=== PATIENT | female | born 1955 | race African-American/Black ===

== ENCOUNTER 2022-08-12 17:36 | Emergency (ER) | payer MEDICARE, SELFPAY ==
[2022-08-12] VITALS (23 sets, daily range): BP systolic 144–181; BP diastolic 96–118; PULSE 77–88; RESP 13–21; TEMP 36.8; O2SAT 99–100
[2022-08-12 18:04] LABS: Glucose Point of Care 125 mg/dl (65-105)
[2022-08-12 18:21] LABS: Basophils Percent Auto 0.2 % (0.2-1.2); Eosinophils Percent Auto 0.3 % (0-4.4); Hematocrit 40.3 % (37.0-47.0); Hemoglobin 13.6 g/dL (12.0-15.0); Immature Granulocyte Absolute 0.02 K/mm3 (0.00-0.031); Immature Granulocyte Percent A 0.2 % (0-0.5); Lymphocytes Absolute Auto 1.14 K/mm3 (0.9-3.2); Lymphocytes Percent Auto 11.1 % (18.3-44.2); Mean Corpuscular HGB Conc 33.7 g/dl (32-36); Mean Corpuscular Hemoglobin 29.6 pg (26-34); Mean Corpuscular Volume 87.6 fl (80-100); Mean Platelet Volume 9.5 fl (7.4-10.4); Monocytes Absolute Auto 0.7 K/mm3 (0.1-0.6); Neutrophils Absolute Auto 8.4 K/mm3 (1.3-6.7); Neutrophils Percent Auto 81.2 % (45.5-73.1); Platelet Count Result 354 k/mm3 (150-375); Red Cell Distribution Width 12.9 % (11.5-14.5); White Blood Count 10.3 K/mm3 (4.5-10.0)
[2022-08-12 18:26] LABS: Lactic Acid Reflex 1.3 mmol/L (0.7-2.0)
[2022-08-12 18:28] LABS: Alanine Aminotransferase 21 U/L (6-35); Alkaline Phosphatase 77 U/L (38-126); Anion Gap 6 mmol/L (8-16); Aspartate Amino Transferase 23 U/L (14-36); Bilirubin,Total 0.5 mg/dL (0.2-1.3); Blood Urea Nitrogen 13 mg/dL (7-17); Calcium 9.4 mg/dL (8.4-10.2); Carbon Dioxide 27 mmol/L (22-30); Chloride 107 mmol/L (98-107); Estimated CRCL calculation 68 ml/min; Estimated Glomerular Filt Rate > 60; Glucose 131 mg/dL (65-110); Lipase 46 U/L (23-300); Potassium 4.2 mmol/L (3.4-5.0); Sodium 140 mmol/L (137-145)
--- NOTE | 2022-08-12 18:31 | ED.GENADULT ---
HPI - General Adult General Chief complaint: Altered Mental Status Stated complaint: Abd Pain Time Seen by Provider: 08/12/22 18:10 History of Present Illness HPI narrative: This is a 66-year-old female with chronic debility presenting to ED with abdominal pain. says that over the last 2 or 3 days she has not had a bowel movement. He says that he can see the stool in her rectum but it will not come out. She does take a Dulcolax stool softeners. The patient herself is A&O times 1-2 at baseline. She is complaining that she has not had a bowel movement several days but no other complaints. Related Data Home Medications Medication Instructions Recorded Confirmed hydrochlorothiazide 25 mg tablet 25 mg PO DAILY 04/08/21 04/09/21 levothyroxine 137 mcg tablet 137 mcg PO DAILY 04/08/21 04/09/21 simvastatin 20 mg tablet 20 mg PO DAILY 04/08/21 04/09/21 docusate sodium 100 mg tablet 100 mg PO BID 04/09/21 04/09/21 gabapentin 300 mg tablet 300 mg PO BID 04/09/21 04/09/21 Allergies Allergy/AdvReac Type Severity Reaction Status Date / Time Penicillins Allergy Unknown Verified 04/09/21 14:35 [facility] Past Medical History Medical History Debility Surgical History Surgical History H/O: hysterectomy Social History Social History Smoking status: Never smoker Alcohol intake: never Exam Narrative: APPEARANCE: No apparent distress. A&O times 1-2 Head: atraumatic. EYES: EOMI, NOSE: Atraumatic NECK: Trachea midline RESPIRATORY: No increased rate of breathing, clear to auscultation bilaterally CARDIOVASCULAR: RRR, no peripheral edema ABDOMINAL: Non-distended, soft no guarding or rebound MUSCULOSKELETAl: No obvious deformities NEURO: Alert. Moving 4/4 extremities SKIN:: no skin breakdown PSYCHIATRIC: Normal affect Rectal exam revealed hard stool in the rectal vault. Course Vital Signs Vital signs: Vital Signs Temperature 98.2 F 08/12/22 17:44 Pulse Rate 88 02/01/23 17:44 Respiratory Rate 18 08/12/22 17:44 Blood Pressure 181/118 H 08/12/22 17:44 Pulse Oximetry 100 08/12/22 17:44 Oxygen Delivery Room Air 08/12/22 17:44 Temperature 98.2 F 08/12/22 17:44 Pulse Rate 83 08/12/22 20:16 Respiratory Rate 21 H 08/12/22 20:16 Blood Pressure 165/110 H 08/12/22 20:16 Pulse Oximetry 99 08/12/22 18:01 Oxygen Delivery Room Air 08/12/22 17:44 Procedures Rectal Disimpaction Rectal Disimpaction #1: Rectal Disimpaction Date: 08/12/22 Time out performed rectal disimpaction: Yes Indication: fecal impaction Procedural Sedation: No Sedation/Analgesia: none Technique: manual disimpaction with gloved finger Result: significant stool output Patient Tolerated Procedure: well Complications: pain Medical Decision Making MDM Narrative Medical decision making narrative: -Presentation: Debilitated 66-year-old female presenting with abdominal pain, fatigue and decreased oral appetite. -DDX includes but is not limited to: Urinary tract infection, dehydration, viral illness, small-bowel obstruction, fecal impaction -Co-morbidities complicating care: low functional status, baseline confusion -Social determinants of health: patient lives with her . They do not have home health care. -External Chart Review: None -Hx from independent Sources: -Venancio [phone] -Discussion of Management/Consultants: none -Independent interpretation of studies: CBC showed a mild increase in white blood cell count but no other findings. Metabolic panel is within acceptable limits. Urinalysis did not indicate infection. Viral swabs were positive for COVID-19. Patient does not have respiratory distress or is requiring supplemental oxygen. Dx tests considered but not
[2022-08-12 18:55] LABS: Appearance Urine Clear (Clear); Bilirubin Urine Negative (Negative); Blood Urine 1+ (Negative); Color Urine Light Yellow (Yellow); Glucose Urine UA Negative (Negative); Ketones Urine Negative (Negative); Leukocyte Esterase Ur Negative LEU/UL (Negative); Nitrate Urine Negative (Negative); Protein Urine Negative (Negative); Urobilinogen Urine 0.2 mg/dL (<2.0); pH Urine 5.5 (5.0-9.0)
[2022-08-12] MEDS: BISACODYL 10 MG SUPPOSITORY RECTAL (19:04)
[2022-08-12 19:13] LABS: Mucus Urine Rare /lpf; RBC Urine 0-2 /hpf (0-2); Squamous Epithelial Cell Urine Rare /hpf (Few); WBC Urine 0-3 /hpf
[2022-08-12 19:25] LABS: Add Urine Microscopic? YES
[2022-08-12 21:05] LABS: Influenza A QL RT-PCR Negative (Negative); Influenza B QL RT-PCR Negative (Negative); RSV RNA, RT-PCR Negative (Negative); SARS-CoV-2 RNA PCR Positive
== END 2022-08-12 22:00 | disposition home or self-care (01) ==
PROVIDERS: Emergency Medicine; Emergency Provider Emergency Medicine; PCP Physician Assistant
DX: U07.1 COVID-19 (principal); K56.41 Fecal impaction; R53.81 Other malaise
CPT/HCPCS: 36415; 80053; 81001; 82948; 83605; 83690; 85025; 87637; 99283; A9270

== ENCOUNTER 2023-04-26 11:33 | Inpatient (IN) | payer MEDICARE, SELFPAY ==
[2023-04-26] VITALS (17 sets, daily range): BP systolic 124–157; BP diastolic 84–108; PULSE 89–107; RESP 14–27; TEMP 36.3–37.2; O2SAT 94–98; BMI 16.1
--- NOTE | ~2023-04-26 | CT_ITS ---
CT head without contrast Indication: Mental status change Technique: Serial scans were obtained through the brain without the administration of contrast. Dose reduction technique was used on this scan by utilizing automated exposure control and iterative recon struction technique. The dose-length product (DLP) was 605.33 mGy-cm. Findings: There is no evidence of intracranial hemorrhage, mass lesion, or acute infarct. The ventri cles and subarachnoid spaces are dilated, consistent with mild atrophy. Low attenuation regions are seen within the periventricular white matter bilaterally, likely representing changes from chronic mi crovascular ischemic disease. There is no evidence of edema, mass effect or midline shift. The visu alized paranasal sinuses and mastoid air cells are clear. Impression: No intracranial hemorrhage, mass, or acute infarct. Atrophy and chronic white matter changes, as above. Reviewed, dictated and finalized at location . Impression: No intracranial hemorrhage, mass, or acute infarct. Atrophy and chronic white matter changes, as above.
--- NOTE | ~2023-04-26 | XR_ITS ---
Portable chest x-ray Comparison: 05/23/2007 Clinical History: Altered mental status Findings: Questional medial right basilar airspace disease. Left lung clear. Cardiomediastinal silh ouette is stable. Bones and soft tissues are unremarkable. Impression: Questionable hazy airspace disease medial right lung base. Pneumonia is a potential consideration. Reviewed, dictated and finalized at [facility]. Impression: Questionable hazy airspace disease medial right lung base. Pneumonia is a poten tial consideration.
--- NOTE | 2023-04-26 11:44 | ECG_ITS ---
Measurements Intervals [place] Rate: 105 P: -18 [place]: 175 QRS: 17 QRSD: 92 T: 121 QT: 332 QTc: 440 Interpretive Statements SINUS TACHYCARDIA BASELINE ARTIFACT MODERATE T-WAVE ABNORMALITY, CONSIDER ANTEROLATERAL ISCHEMIA [-0.1+ mV T WAVE IN V3- V6] ABNORMAL ECG NO PREVIOUS ECG AVAILABLE FOR COMPARISON Electronically Signed On 04-26-2023 17:07:27 CDT by Gamal Silva M.D.
[2023-04-26 12:06] LABS: Basophils Percent Auto 0.3 % (0.2-1.2); Eosinophils Percent Auto 0.3 % (0-4.4); Hematocrit 43.8 % (37.0-47.0); Hemoglobin 13.3 g/dL (12.0-15.0); Immature Granulocyte Absolute 0.02 K/mm3 (0.00-0.031); Immature Granulocyte Percent A 0.2 % (0-0.5); Lymphocytes Absolute Auto 0.98 K/mm3 (0.9-3.2); Lymphocytes Percent Auto 11.1 % (18.3-44.2); Mean Corpuscular HGB Conc 30.4 g/dl (32-36); Mean Corpuscular Hemoglobin 27.3 pg (26-34); Mean Corpuscular Volume 89.9 fl (80-100); Mean Platelet Volume 9.7 fl (7.4-10.4); Monocytes Absolute Auto 0.6 K/mm3 (0.1-0.6); Monocytes Percent Auto 6.7 % (2.6-8.5); Neutrophils Absolute Auto 7.2 K/mm3 (1.3-6.7); Neutrophils Percent Auto 81.4 % (45.5-73.1); Platelet Count Result 346 k/mm3 (150-375); Red Blood Count 4.87 M/mm3 (4.2-5.4); Red Cell Distribution Width 16.1 % (11.5-14.5); White Blood Count 8.8 K/mm3 (4.5-10.0)
--- NOTE | 2023-04-26 12:06 | ED.AMS ---
HPI - Altered Mental Status General Chief Complaint: Altered Mental Status Stated Complaint: ams Time Seen by Provider: 04/26/23 12:01 History of Present Illness HPI narrative: Pt presents form local [place] with son who is providing history. Per son, pt is normally alert and oriented x2 and over last two days has become less responsive . Related Data Home Medications Medication Instructions Recorded Confirmed levothyroxine 137 mcg tablet 75 mcg PO DAILY 04/08/21 04/26/23 levetiracetam 500 mg tablet 500 mg PO BID 04/26/23 04/26/23 loratadine 10 mg tablet 10 mg PO DAILY 04/26/23 04/26/23 magnesium hydroxide 400 mg/5 mL 30 ml PO QHS PRN Constipation 04/26/23 04/26/23 oral suspension (Milk of Magnesia) melatonin 3 mg tablet 3 mg PO QHS 04/26/23 04/26/23 mirtazapine 7.5 mg tablet 7.5 mg PO QHS 04/26/23 04/26/23 polyethylene glycol 3350 17 gram 17 g PO DAILY constipation 04/26/23 04/26/23 oral powder packet (Miralax) polyvinyl alcohol 1.4 % eye drops 1 drp EACH EYE DAILY PRN Dry Eyes 04/26/23 04/26/23 tetrahydrozoline 0.05 % eye drops 2 drp EACH EYE DAILY 04/26/23 04/26/23 (Eye Drops (tetrahydrozoline)) Allergies Allergy/AdvReac Type Severity Reaction Status Date / Time Penicillins Allergy Unknown Verified 04/26/23 11:46 [facility] Past Medical History Medical History (Updated 04/26/23 @ 17:16 by Daisy French PA-C) Hyperlipidemia Hypertension Hypothyroidism Multiple sclerosis Surgical History Surgical History History of hysterectomy Family History Family History Other Family history unknown Social History Social History (Updated 04/26/23 @ 17:01 by Daisy French PA-C) Social History: Surrogate medical decision maker: Zoran Lyn, spouse. Code status: Full code. Smoking status: Never smoker Alcohol intake: never Substance use: never Spiritual care concerns: No Course Vital Signs Vital signs: Vital Signs Temperature 99 F 04/26/23 11:37 Pulse Rate 104 H 04/26/23 11:37 Respiratory Rate 22 H 04/26/23 11:37 Blood Pressure 141/100 H 04/26/23 11:37 Pulse Oximetry 95 04/26/23 11:37 Oxygen Delivery Room Air 04/26/23 11:37 Temperature 97.6 F 04/26/23 16:00 Pulse Rate 89 04/26/23 16:00 Respiratory Rate 17 04/26/23 16:00 Blood Pressure 149/92 H 04/26/23 16:00 Pulse Oximetry 96 04/26/23 16:00 Oxygen Delivery Room Air 04/26/23 17:00 MDM - Altered Mental Status MDM Narrative Medical decision making narrative: Pt is less responsive per son, seems more likely to be infection so will check labs and cxr and ua, will check CT head to make sure not cva or mass. has infiltrate on cxr. discussed with Daisy Medina agrees to admit. will start rocephin and zithromax Lab Data 04/26/23 11:58 04/26/23 11:58 Labs: Lab Results 04/26/23 04/26/23 04/26/23 Range/Units 11:58 12:55 13:45 WBC 8.8 (4.5-10.0) K/mm3 RBC 4.87 (4.2-5.4) M/mm3 Hgb 13.3 (12.0-15.0) g/dL Hct 43.8 (37.0-47.0) % MCV 89.9 (80-100) fl MCH 27.3 (26-34) pg MCHC 30.4 L (32-36) g/dl RDW 16.1 H (11.5-14.5) % Plt Count 346 (150-375) k/mm3 MPV 9.7 (7.4-10.4) fl Immature Gran % (Auto) 0.2 (0-0.5) % Neut % (Auto) 81.4 H (45.5-73.1) % Lymph % (Auto) 11.1 L (18.3-44.2) % [place] % (Auto) 6.7 (2.6-8.5) % Eos % (Auto) 0.3 (0-4.4) % Baso % (Auto) 0.3 (0.2-1.2) % Lymph # (Auto) 0.98 (0.9-3.2) K/mm3 [place] # (Auto) 0.6 (0.1-0.6) K/mm3 Eos # (Auto) 0.0 (0-0.3) K/mm3 Baso # (Auto) 0.0 (0.0-0.1) K/mm3 Abs Immat Gran (auto) 0.02 (0.00-0.031) K/mm3 Absolute Neuts (auto) 7.2 H (1.3-6.7) K/mm3 Absolute Nucleated RBC 0.0 (0.0-0.012) K/mm3 Nucleated RBC % 0.0 (0.0-0.2) % PT 15.3 H (11.1-14.7) Seconds INR 1.2 APTT 36.4 (22.3-36.8) SE
--- NOTE | 2023-04-26 12:11 | PC.NURSE ---
Called [facility] for IV placement after 5 unsuccessful attempts.
[2023-04-26 12:22] LABS: Alanine Aminotransferase 54 U/L (6-35); Albumin Level 3.7 g/dL (3.5-5.1); Alkaline Phosphatase 98 U/L (38-126); Anion Gap 13 mmol/L (8-16); Aspartate Amino Transferase 58 U/L (14-36); Bilirubin,Total 0.9 mg/dL (0.2-1.3); Blood Urea Nitrogen 19 mg/dL (7-17); Calcium 9.2 mg/dL (8.4-10.2); Carbon Dioxide 19 mmol/L (22-30); Chloride 114 mmol/L (98-107); Estimated Glomerular Filt Rate > 60; Glucose 112 mg/dL (65-110); Potassium 4.3 mmol/L (3.4-5.0); Sodium 146 mmol/L (137-145)
[2023-04-26 13:31] LABS: INR 1.2; Prothrombin Time 15.3 Seconds (11.1-14.7)
[2023-04-26 13:32] LABS: Partial Thromboplastin Time 36.4 SECONDS (22.3-36.8)
[2023-04-26] MEDS: LACTATED RINGERS 1,000 ML 125 ML IV CONT (14:14)
[2023-04-26] MEDS: cefTRIAXone 2 GM/NS 100 ML 2 GM/100 ML BAG IVPB (14:14)
[2023-04-26 14:16] LABS: Appearance Urine Clear (Clear); Bacteria Urine Rare /hpf; Bilirubin Urine Negative (Negative); Blood Urine Negative (Negative); Color Urine Dark Yellow (Yellow); Glucose Urine UA Negative (Negative); Ketones Urine Trace mg/dL (Negative); Leukocyte Esterase Ur 2+ LEU/UL (Negative); Need Manual Microscopic Reviewed; Nitrate Urine Negative (Negative); Non Pathogenic Casts 0-2; Protein Urine Negative (Negative); RBC Urine 0-2 /hpf (0-2); Specific Grav Ur 1.023 (1.001-1.035); Squamous Epithelial Cell Urine None seen /hpf (Few); Urobilinogen Urine 0.2 mg/dL (<2.0); WBC Urine 0-5 /hpf; pH Urine 5.5 (5.0-9.0)
[2023-04-26 14:18] LABS: Add Urine Microscopic? YES
--- NOTE | 2023-04-26 15:59 | ADMGEN ---
This patient, Krista Lyn, was admitted to Medical Room 254-01. Patient/family oriented to hospital policies and general routines including ID bracelet, bed and alarms, visiting hours, pain management, procedures, bathroom and other care routines, personal items, smoking policy, room service/diet, and visiting hours. Information on how to activate the Rapid Response Team has been discussed. Patient/Family are encouraged to report perceived risks to care and to ask questions if they do not understand what they are told or what they should do.
[2023-04-26] MEDS: AZITHROMYCIN 500 MG/NS 250 ML 500 MG/250 ML BAG 250 MG IVPB (16:11)
--- NOTE | 2023-04-26 16:58 | PM.IMHP ---
H&P: HPI History of Present Illness Date/Time: 04/26/23 13:30 Chief Complaint: Altered mental status. Narrative: This is an unfortunate 59-year-old female with debilitating multiple sclerosis, hypertension, hyperlipidemia, and hypothyroidism who presented to the emergency department via EMS from [facility] for evaluation of altered mental status. She is alert but does not attempt to follow commands or answer questions. Her provides the following history. She is reportedly A&O x2-3 at baseline though the last 3 days she has become less interactive. She is on a pureed diet and typically does well with that however has noticed more recently that she will occasionally clear her throat when eating and she has been pocketing food the last couple of days. She has gradually lost weight over the last couple of years. She does not have nor has she ever had a G-tube for supplemental feeding. To the 's knowledge, she has not had a fever for showed signs of infection. Specifically she has not had a cough, vomiting, or diarrhea. In the ED: She was afebrile on arrival with stable vital signs. Blood pressures have been running in the 140s to 150s systolic. CBC was relatively unremarkable. CMP was significant for sodium of 146, chloride 114, BUN 19, creatinine 0.50, AST 58, ALT 54. Urine was positive for trace ketones and 2+ leukocyte esterase. She tested negative for influenza and COVID. Brain CT did not show any acute findings. Chest x-ray showed questionable hazy airspace disease in the medial right lung base. She was given 500 mg IV azithromycin and 2 g IV ceftriaxone and she is being admitted in this setting for treatment of presumed pneumonia. Review of Systems Review of Systems: Unable to be obtained given current clinical condition. [facility] Past Medical History Medical History (Updated 04/26/23 @ 17:16 by Daisy French PA-C) Hyperlipidemia Hypertension Hypothyroidism Multiple sclerosis Surgical History Surgical History History of hysterectomy Family History Family History Other Family history unknown Social History Social History (Updated 04/26/23 @ 17:01 by Daisy French PA-C) Social History: Surrogate medical decision maker: Zoran Lyn, spouse. Code status: Full code. Smoking status: Never smoker Alcohol intake: never Substance use: never Spiritual care concerns: No Meds Home Medications and Allergies Home Medications Medication Instructions Recorded Confirmed Type levothyroxine 137 mcg tablet 75 mcg PO DAILY 04/08/21 04/26/23 History levetiracetam 500 mg tablet 500 mg PO BID 04/26/23 04/26/23 History loratadine 10 mg tablet 10 mg PO DAILY 04/26/23 04/26/23 History magnesium hydroxide 400 mg/5 mL 30 ml PO QHS PRN Constipation 04/26/23 04/26/23 History oral suspension (Milk of Magnesia) melatonin 3 mg tablet 3 mg PO QHS 04/26/23 04/26/23 History mirtazapine 7.5 mg tablet 7.5 mg PO QHS 04/26/23 04/26/23 History polyethylene glycol 3350 17 gram 17 g PO DAILY constipation 04/26/23 04/26/23 History oral powder packet (Miralax) polyvinyl alcohol 1.4 % eye drops 1 drp EACH EYE DAILY PRN Dry Eyes 04/26/23 04/26/23 History tetrahydrozoline 0.05 % eye drops 2 drp EACH EYE DAILY 04/26/23 04/26/23 History (Eye Drops (tetrahydrozoline)) Allergies Allergy/AdvReac Type Severity Reaction Status Date / Time Penicillins Allergy Unknown Verified 04/26/23 11:46 Vital Signs Vital Signs - 24 hr 04/26/23 11:37 04/26/23 11:52 04/26/23 11:53 Temperature 99 F Pulse Rate 104 H 107 H 106 H Respiratory Rate 22 H 27 H 25 H Blood Pressure 141/100 H 145/108 H Pulse Oximetry 95 Oxygen Delivery Room Air 04/26/23 12:00 04/26/23 12:03 04/26/23 12:04 Temperature Pulse Rate 100 102 H 102 H Respiratory Rate 20 19 23 H Blood Pressure 157/100
[2023-04-26] MEDS: DEXTROSE 5%/LACTATED RINGERS 1,000 ML 100 ML IV CONT (17:37)
[2023-04-26 18:41] LABS: Influenza A QL RT-PCR Negative (Negative); Influenza B QL RT-PCR Negative (Negative); SARS-CoV-2 RNA PCR Negative (Negative)
[2023-04-27] VITALS (10 sets, daily range): BP systolic 95–151; BP diastolic 51–87; PULSE 85–97; RESP 16–22; TEMP 36.2–37.3; O2SAT 92–96; BMI 16.1
[2023-04-27 05:57] LABS: Hematocrit 36.7 % (37.0-47.0); Hemoglobin 11.5 g/dL (12.0-15.0); Mean Corpuscular HGB Conc 31.3 g/dl (32-36); Mean Corpuscular Hemoglobin 27.3 pg (26-34); Mean Platelet Volume 9.8 fl (7.4-10.4); Platelet Count Result 359 k/mm3 (150-375); Red Blood Count 4.22 M/mm3 (4.2-5.4); Red Cell Distribution Width 15.8 % (11.5-14.5); White Blood Count 14.5 K/mm3 (4.5-10.0)
[2023-04-27 06:07] LABS: Alanine Aminotransferase 74 U/L (6-35); Albumin Level 3.2 g/dL (3.5-5.1); Alkaline Phosphatase 103 U/L (38-126); Anion Gap 7 mmol/L (8-16); Aspartate Amino Transferase 86 U/L (14-36); Bilirubin,Total 0.7 mg/dL (0.2-1.3); Blood Urea Nitrogen 14 mg/dL (7-17); Calcium 8.6 mg/dL (8.4-10.2); Carbon Dioxide 23 mmol/L (22-30); Chloride 117 mmol/L (98-107); Estimated CRCL calculation 62 ml/min; Estimated Glomerular Filt Rate > 60; Glucose 161 mg/dL (65-110); Magnesium 2.1 mg/dL (1.6-2.3); Potassium 3.2 mmol/L (3.4-5.0); Sodium 147 mmol/L (137-145)
[2023-04-27] MEDS: ENOXAPARIN 40 MG/0.4 ML SYRINGE SUB-Q (08:00)
[2023-04-27 08:34] LABS: Free T4 Free Thyroxine Reflex 1.02 ng/dL (0.78-2.19)
--- NOTE | 2023-04-27 09:51 | PCSTNOTE ---
Please refer to the Bedside Swallow Evaluation in the EMR. Please note, silent aspiration cannot be ruled out at bedside.
[2023-04-27] MEDS: LEVOTHYROXINE SODIUM INJ 100 MCG/5 ML VIAL 37.5 MCG IV PUSH (10:11)
[2023-04-27] MEDS: levETIRAcetam 500MG/NACL 100ML 500 MG/100 ML BAG 400 MG IVPB ×2 (10:17→20:06)
--- NOTE | 2023-04-27 12:19 | PC.NURSE ---
On 04/27/23, the student, [Dean Comer], provided care and completed [facility] documentation on this patient. I have reviewed the student's documentation and agree with the findings.
--- NOTE | 2023-04-27 14:29 | PM.IMPN ---
Progress Note: A&P Assessment and Plan (1) Altered mental status: Code(s): R41.82 - Altered mental status, unspecified Status: Acute Assessment and Plan: According to the family patient is A&O x3 at baseline although the past couple days she has been less interactive. Patient has gradually lost weight for the past couple years and has not been eating much and the family states that she pockets her food. Concern for aspiration. Speech consulted. Speech therapy recommending NPO due to patient's mental status. Patient being worked up for MS at [place] although she has not gotten definitive diagnosis. UA did not show any signs of infection. Head CT did not reveal any mass, stroke or bleed. Patient being treated for aspiration pneumonia (2) Pneumonia: Code(s): J18.9 - Pneumonia, unspecified organism Status: Acute Assessment and Plan: chest x-ray showing questionable hazy airspace disease in medial right lung base with pneumonia as a potential consideration. Due to patient's history will begin therapy for aspiration pneumonia. Patient started on ceftriaxone and azithromycin. (3) Dehydration: Code(s): E86.0 - Dehydration Status: Acute Assessment and Plan: Probably due to lack of malnutrition in p.o. intake. IV fluids continued (4) Multiple sclerosis: Code(s): G35 - Multiple sclerosis Status: Acute Assessment and Plan: Patient has not been officially diagnosed. Being worked up by Neurology at [place]. They have appointment in May to follow-up with test results. (5) Hypertension: Code(s): I10 - Essential (primary) hypertension Status: Acute Assessment and Plan: Hold oral medications at this time. IV hydralazine for systolic blood pressure greater than 180 (6) Hypothyroidism: Code(s): E03.9 - Hypothyroidism, unspecified Status: Acute Assessment and Plan: Synthroid transition to IV due to patient's NPO status. 37.5 IV levothyroxine daily. (7) Pressure ulcer: Code(s): L89.90 - Pressure ulcer of unspecified site, unspecified stage Status: Acute Assessment and Plan: Coccyx and bilateral heels Due to chronic immobility wound care consulted. Subjective Date/time seen: 04/27/23 14:29 Interval history: Patient is nonverbal and can only grunt in response. Review of systems unable to be obtained. Discussed care with patient's and he states that she has not been walking for 3-4 weeks and that she has been in this state of consciousness for 1-2 days but then he said she has been like this for 3 weeks. Poor historian. It appears to me that most of her condition as chronic. G-tube discussed with patient's and he has decided to go through with it in hopes that will help her regain her strength. Discussed with him that if most of these problems are chronic she may not fully recover. Exam Narrative: GENERAL: Comfortable, no acute distress,obtunded HENMT: moist mucous membranes EYES: EOM intact b/l RESPIRATORY: limited exam due to lack of mobility although clear to auscultation CARDIO: RRR GI: soft, nontender, bowel sounds present SKIN: bilateral heel ulcers EXTREMITIES: no edema, redness or tenderness Objective Data Vital Signs Vital Signs: Vital Signs - 24 hr 04/26/23 16:00 04/26/23 17:00 04/26/23 20:00 Temperature 97.6 F Pulse Rate 89 Respiratory Rate 17 Blood Pressure 149/92 H Pulse Oximetry 96 Oxygen Delivery Room Air Room Air 04/26/23 22:00 04/26/23 20:00 04/27/23 00:00 Temperature 97.4 F L Pulse Rate 99 97 95 Respiratory Rate 14 Blood Pressure 124/84 Pulse Oximetry 94 Oxygen Delivery 04/27/23 04:00 04/27/23 06:00 04/27/23 10:33 Temperature 97.1 F L Pulse Rate 95 97 Respiratory Rate 20 Blood Pressure 151/87 H Pulse Oximetry 94 92
[2023-04-27] MEDS: AZITHROMYCIN 500 MG/NS 250 ML 500 MG/250 ML BAG 250 MG IVPB (14:38)
--- NOTE | 2023-04-27 16:10 | WPDGICN ---
Assessment and Plan Assessment and plan (1) Multiple sclerosis: Code(s): G35 - Multiple sclerosis Status: Acute Assessment and Plan: Patient with workup in progress for what appears to be multiple sclerosis. Currently with altered mental status Significant clinical decline over the last 3 weeks. patient currently unable to eat or swallow on her own. She has failed a bedside swallowing test. Admitted with what appears be aspiration pneumonia. PEG tube requested. Family agrees to proceed will plan to proceed with this tomorrow. (2) Pressure ulcer: Code(s): L89.90 - Pressure ulcer of unspecified site, unspecified stage Status: Acute (3) Altered mental status: Code(s): R41.82 - Altered mental status, unspecified Status: Acute Assessment and Plan: Patient with declining mental status unable to converse presently. This may not be reversible. Currently unable to maintain adequate oral intake on her own. (4) Pneumonia: Code(s): J18.9 - Pneumonia, unspecified organism Status: Acute Assessment and Plan: Patient felt to have aspiration pneumonia. She has failed bedside swallow test. We will plan to proceed with PEG tube in the morning. GI Consult Note Consult date/time: 04/27/23 16:10 Reason for consult: Peg tube placement HPI: Krista Lyn is a 67 year old female I am asked to see at the request of the hospitalist service to arrange PEG tube placement. Patient has an underlying history of multiple sclerosis. Over the last 3-4 weeks has had altered mental status and become less responsive less interactive. Patient has somewhat difficulty swallowing. She will cough when eating. During this hospital stay at bedside modified barium swallow study was performed was felt she had silent aspiration. Chest x-ray reveals evidence for what appears be an aspiration pneumonia. Patient currently on treatment with antibiotics. PEG tube is requested for non oral intake to provide nutrition without risk of further aspiration. Patient currently is unable to add any useful history. She is nonverbal. has agreed to proceed with PEG tube. Review of Systems Review of Systems: ROS unobtainable: Yes unobtainable due to mental status [facility] Past Medical History Medical History (Updated 04/27/23 @ 14:47 by Essie Gregg PA-C) Hyperlipidemia Hypertension Hypothyroidism Multiple sclerosis Surgical History Surgical History History of hysterectomy Family History Family History Other Family history unknown Social History Social History (Updated 04/26/23 @ 17:01 by Daisy French PA-C) Social History: Surrogate medical decision maker: Zoran Lyn, spouse. Code status: Full code. Smoking status: Never smoker Alcohol intake: never Substance use: never Spiritual care concerns: No Meds Home Medications and Allergies Home Medications Medication Instructions Recorded Confirmed Type levothyroxine 137 mcg tablet 75 mcg PO DAILY 04/08/21 04/26/23 History levetiracetam 500 mg tablet 500 mg PO BID 04/26/23 04/26/23 History loratadine 10 mg tablet 10 mg PO DAILY 04/26/23 04/26/23 History magnesium hydroxide 400 mg/5 mL 30 ml PO QHS PRN Constipation 04/26/23 04/26/23 History oral suspension (Milk of Magnesia) melatonin 3 mg tablet 3 mg PO QHS 04/26/23 04/26/23 History mirtazapine 7.5 mg tablet 7.5 mg PO QHS 04/26/23 04/26/23 History polyethylene glycol 3350 17 gram 17 g PO DAILY constipation 04/26/23 04/26/23 History oral powder packet (Miralax) polyvinyl alcohol 1.4 % eye drops 1 drp EACH EYE DAILY PRN Dry Eyes 04/26/23 04/26/23 History tetrahydrozoline 0.05 % eye drops 2 drp EACH EYE DAILY 04/26/23 04/26/23 History (Eye Drops (tetrahydrozoline)) Allergies Allergy/AdvReac Type Severity Reaction
[2023-04-27 16:49] LABS: Basophils Percent Auto 0.2 % (0.2-1.2); Eosinophils Percent Auto 0.2 % (0-4.4); Hematocrit 34.1 % (37.0-47.0); Hemoglobin 10.1 g/dL (12.0-15.0); Immature Granulocyte Absolute 0.08 K/mm3 (0.00-0.031); Immature Granulocyte Percent A 0.5 % (0-0.5); Lymphocytes Absolute Auto 0.83 K/mm3 (0.9-3.2); Mean Corpuscular HGB Conc 29.6 g/dl (32-36); Mean Corpuscular Hemoglobin 26.6 pg (26-34); Mean Corpuscular Volume 89.7 fl (80-100); Mean Platelet Volume 9.9 fl (7.4-10.4); Monocytes Absolute Auto 0.8 K/mm3 (0.1-0.6); Monocytes Percent Auto 4.5 % (2.6-8.5); Neutrophils Absolute Auto 14.8 K/mm3 (1.3-6.7); Neutrophils Percent Auto 89.6 % (45.5-73.1); Platelet Count Result 280 k/mm3 (150-375); Red Cell Distribution Width 16.2 % (11.5-14.5); White Blood Count 16.5 K/mm3 (4.5-10.0)
[2023-04-27 17:01] LABS: Anion Gap 5 mmol/L (8-16); Blood Urea Nitrogen 13 mg/dL (7-17); Calcium 8.3 mg/dL (8.4-10.2); Carbon Dioxide 23 mmol/L (22-30); Chloride 119 mmol/L (98-107); Estimated CRCL calculation 76 ml/min; Estimated Glomerular Filt Rate > 60; Glucose 112 mg/dL (65-110); Potassium 3.4 mmol/L (3.4-5.0); Sodium 147 mmol/L (137-145)
[2023-04-27 17:07] LABS: INR 1.3; Prothrombin Time 16.8 Seconds (11.1-14.7)
[2023-04-27 17:08] LABS: Partial Thromboplastin Time 30.6 SECONDS (22.3-36.8)
[2023-04-27 17:18] LABS: Hypochromasia 1+ (NORMAL); Platelet Estimate Adequate (Adequate); Schistocytes None Seen (NORMAL)
[2023-04-27] MEDS: MIRTAZAPINE 7.5 MG TABLET PO (20:06)
[2023-04-27] MEDS: MELATONIN 3 MG TABLET PO (20:07)
[2023-04-28] VITALS (9 sets, daily range): BP systolic 120–130; BP diastolic 75–78; PULSE 73–94; RESP 16–22; TEMP 36.4–37.1; O2SAT 90–98
[2023-04-28 05:21] LABS: Basophils Percent Auto 0.2 % (0.2-1.2); Eosinophils Absolute Auto 0.1 K/mm3 (0-0.3); Eosinophils Percent Auto 0.3 % (0-4.4); Hematocrit 34.3 % (37.0-47.0); Hemoglobin 10.3 g/dL (12.0-15.0); Immature Granulocyte Absolute 0.08 K/mm3 (0.00-0.031); Immature Granulocyte Percent A 0.4 % (0-0.5); Lymphocytes Absolute Auto 0.66 K/mm3 (0.9-3.2); Lymphocytes Percent Auto 3.7 % (18.3-44.2); Mean Corpuscular Hemoglobin 26.7 pg (26-34); Mean Corpuscular Volume 88.9 fl (80-100); Mean Platelet Volume 9.9 fl (7.4-10.4); Monocytes Absolute Auto 0.6 K/mm3 (0.1-0.6); Monocytes Percent Auto 3.5 % (2.6-8.5); Neutrophils Absolute Auto 16.6 K/mm3 (1.3-6.7); Neutrophils Percent Auto 91.9 % (45.5-73.1); Platelet Count Result 353 k/mm3 (150-375); Red Blood Count 3.86 M/mm3 (4.2-5.4)
[2023-04-28 05:25] LABS: Alanine Aminotransferase 148 U/L (6-35); Albumin Level 2.9 g/dL (3.5-5.1); Alkaline Phosphatase 124 U/L (38-126); Anion Gap 8 mmol/L (8-16); Aspartate Amino Transferase 208 U/L (14-36); Bilirubin,Total 0.6 mg/dL (0.2-1.3); Blood Urea Nitrogen 11 mg/dL (7-17); Calcium 8.4 mg/dL (8.4-10.2); Carbon Dioxide 23 mmol/L (22-30); Chloride 119 mmol/L (98-107); Estimated CRCL calculation 62 ml/min; Estimated Glomerular Filt Rate > 60; Glucose 106 mg/dL (65-110); Potassium 2.9 mmol/L (3.4-5.0); Sodium 150 mmol/L (137-145)
[2023-04-28] MEDS: LEVOTHYROXINE SODIUM INJ 100 MCG/5 ML VIAL 37.5 MCG IV PUSH (05:31)
[2023-04-28 05:53] LABS: Hypochromasia 1+ (NORMAL); Platelet Clumps Present; Platelet Estimate Adequate (Adequate); Target Cells 1+ (NORMAL)
[2023-04-28 05:54] LABS: Schistocytes Rare (NORMAL)
--- NOTE | 2023-04-28 08:47 | P.PNIM_ITS ---
Progress Note: A&P Assessment and Plan (1) Altered mental status: Code(s): R41.82 - Altered mental status, unspecified Status: Acute Assessment and Plan: 04/27/2023: * According to the family patient is A&O x3 at baseline although the past couple days she has been less interactive. Patient has gradually lost weight for the past couple years and has not been eating much and the family states that she pockets her food. * Concern for aspiration. Speech consulted. * Speech therapy recommending NPO due to patient's mental status. * Patient being worked up for MS at [facility] although she has not gotten definiti ve diagnosis. * UA did not show any signs of infection. * Head CT did not reveal any mass, stroke or bleed. * Patient being treated for aspiration pneumonia 04/28/2023: * Still unable to follow commands,will open eyes to voice but does not track, she does not speak and only moans * head CT for any intracranial hemorrhage mass or acute infarction * patient had a bedside swallow with speech therapy, silent aspiration could not be ruled out of the bedside * patient currently NPO due to her mental status * GI following patient with plans to take patient for PEG tube once consent to start with the * patient currently being treated for aspiration pneumonia * blood cultures pending * urine culture was negative (2) Pneumonia: Code(s): J18.9 - Pneumonia, unspecified organism Status: Acute Assessment and Plan: 04/27/2023: * chest x-ray showing questionable hazy airspace disease in medial right lung base with pneumonia as a potential consideration. * Due to patient's history will begin therapy for aspiration pneumonia. * Patient started on ceftriaxone and azithromycin. 04/28/2023: * white blood cell count 18.0 which is increased from yesterday * placing patient on broad-spectrum antibiotics, vancomycin, Levaquin * will check an MRSA swab * discontinue azithromycin and Rocephin for now, plan discussed with pharmacy * blood cultures pending * urine culture negative (3) Dehydration: Code(s): E86.0 - Dehydration Status: Acute Assessment and Plan: 04/28/2023: * Probably due to lack of malnutrition in p.o. intake. * IV fluids continued 04/28/23: * patient currently NPO * continue IV fluids * GI consulted for PEG tube placement, awaiting consent from hospital (4) Multiple sclerosis: Code(s): G35 - Multiple sclerosis Status: Acute Assessment and Plan: 04/27/23: * Patient has not been officially diagnosed. Being worked up by Neurology at [facility]. * They have appointment in May to follow-up with test results. 04/28/23: * no change with current treatment (5) Hypertension: Code(s): I10 - Essential (primary) hypertension Status: Acute Assessment and Plan: 04/27/23: * Hold oral medications at this time. * IV hydralazine for systolic blood pressure greater than 180 04/28/23: * blood pressure ranging 120 over 70s 130s over 70s. * IV hydralazine ordered for systolic blood pressure greater than 180. * Holding oral medications at this time (6) Hypothyroidism: Code(s): E03.9 - Hypothyroidism, unspecified Status: Acute Assessment and Plan: 04/27/23: * Synthroid transition to IV due to patient's NPO status. * 37.5 IV levothyroxine daily. 04/28/23: * no change to cu
--- NOTE | 2023-04-28 08:47 | PM.IMPN ---
Progress Note: A&P Assessment and Plan (1) Altered mental status: Code(s): R41.82 - Altered mental status, unspecified Status: Acute Assessment and Plan: 04/27/2023: According to the family patient is A&O x3 at baseline although the past couple days she has been less interactive. Patient has gradually lost weight for the past couple years and has not been eating much and the family states that she pockets her food. Concern for aspiration. Speech consulted. Speech therapy recommending NPO due to patient's mental status. Patient being worked up for MS at [facility] although she has not gotten definitive diagnosis. UA did not show any signs of infection. Head CT did not reveal any mass, stroke or bleed. Patient being treated for aspiration pneumonia 04/28/2023: Still unable to follow commands,will open eyes to voice but does not track, she does not speak and only moans head CT for any intracranial hemorrhage mass or acute infarction patient had a bedside swallow with speech therapy, silent aspiration could not be ruled out of the bedside patient currently NPO due to her mental status GI following patient with plans to take patient for PEG tube once consent to start with the patient currently being treated for aspiration pneumonia blood cultures pending urine culture was negative (2) Pneumonia: Code(s): J18.9 - Pneumonia, unspecified organism Status: Acute Assessment and Plan: 04/27/2023: chest x-ray showing questionable hazy airspace disease in medial right lung base with pneumonia as a potential consideration. Due to patient's history will begin therapy for aspiration pneumonia. Patient started on ceftriaxone and azithromycin. 04/28/2023: white blood cell count 18.0 which is increased from yesterday placing patient on broad-spectrum antibiotics, vancomycin, Levaquin will check an MRSA swab discontinue azithromycin and Rocephin for now, plan discussed with pharmacy blood cultures pending urine culture negative (3) Dehydration: Code(s): E86.0 - Dehydration Status: Acute Assessment and Plan: 04/28/2023: Probably due to lack of malnutrition in p.o. intake. IV fluids continued 04/28/23: patient currently NPO continue IV fluids GI consulted for PEG tube placement, awaiting consent from hospital (4) Multiple sclerosis: Code(s): G35 - Multiple sclerosis Status: Acute Assessment and Plan: 04/27/23: Patient has not been officially diagnosed. Being worked up by Neurology at [facility]. They have appointment in May to follow-up with test results. 04/28/23: no change with current treatment (5) Hypertension: Code(s): I10 - Essential (primary) hypertension Status: Acute Assessment and Plan: 04/27/23: Hold oral medications at this time. IV hydralazine for systolic blood pressure greater than 180 04/28/23: blood pressure ranging 120 over 70s 130s over 70s. IV hydralazine ordered for systolic blood pressure greater than 180. Holding oral medications at this time (6) Hypothyroidism: Code(s): E03.9 - Hypothyroidism, unspecified Status: Acute Assessment and Plan: 04/27/23: Synthroid transition to IV due to patient's NPO status. 37.5 IV levothyroxine daily. 04/28/23: no change to current treatment (7) Pressure ulcer: Code(s): L89.90 - Pressure ulcer of unspecified site, unspecified stage Status: Acute Assessment and Plan: 04/27/2023: Coccyx and bilateral heels Due to chronic immobility wound care consulted. 04/28/2023: no change to current treatment turn q.2 hours elevate heels off bed Time Spent With Patient Time with patient: Greater than 35 minutes Subjective Date/time seen: 04/28/23 08:47 Interval history: This is a 67 yea
[2023-04-28] MEDS: levETIRAcetam 500MG/NACL 100ML 500 MG/100 ML BAG 400 MG IVPB ×2 (09:04→20:39)
[2023-04-28] MEDS: COLLAGENASE OINT 30 GM TUBE 1 APPLIC TOPICAL (09:07)
[2023-04-28 09:32] LABS: Magnesium 2.1 mg/dL (1.6-2.3); Phosphorus 3.3 mg/dL (2.5-4.5)
--- NOTE | 2023-04-28 12:21 | WPDGIPROGNO ---
Progress Note: A&P Assessment and Plan (1) Altered mental status: Code(s): R41.82 - Altered mental status, unspecified Status: Acute Assessment and Plan: Patient unresponsive at present. Apparently has progressivey become more obtunded over the last several weeks. PEG tube requested. Cannot be placed today as consent not able to be obtained from at this point. Will try to reschedule later this week or Wednesday. (2) Multiple sclerosis: Code(s): G35 - Multiple sclerosis Status: Acute (3) Dehydration: Code(s): E86.0 - Dehydration Status: Acute Assessment and Plan: Patient with evidence for dehydration. (4) Pressure ulcer: Code(s): L89.90 - Pressure ulcer of unspecified site, unspecified stage Status: Acute (5) Pneumonia: Code(s): J18.9 - Pneumonia, unspecified organism Status: Acute Assessment and Plan: Patient with pneumonia. White blood cell count increasing. Currently on antibiotics. Will continue to monitor white count. LFTs also elevated may be related to infection. Subjective Date/time seen: 04/28/23 12:21 Interval history: Patient currently unresponsive. Unable to give any history. Apparently patient has become less responsive over the last several weeks. Review of Systems Review of Systems: ROS unobtainable: Yes unobtainable due to mental status Exam Narrative: Physical exam patient is lying in bed. Poorly responsive. HEENT exam unremarkable. Lungs reveal scattered rhonchi. Heart without murmur. Abdomen soft nontender with no organomegaly. Objective Data Vital Signs Vital Signs: Vital Signs - 24 hr 04/27/23 14:35 04/27/23 16:00 04/27/23 20:00 Temperature 99.1 F Pulse Rate 94 86 86 Respiratory Rate 16 Blood Pressure 95/51 L Pulse Oximetry 95 04/27/23 21:22 04/28/23 00:05 04/28/23 04:01 Temperature 98.1 F Pulse Rate 85 84 85 Respiratory Rate 22 H Blood Pressure 120/74 Pulse Oximetry 96 04/28/23 06:00 Temperature 97.5 F L Pulse Rate 73 Respiratory Rate 22 H Blood Pressure 126/78 Pulse Oximetry 97 Intake/Output Intake/Output: Intake & Output 04/25/23 04/26/23 04/27/23 04/28/23 23:59 23:59 23:59 23:59 Intake Total 350 1500 0 Output Total 500 0 Balance 350 1000 0 Meds/Results Medications: Active Medications Generic Name Dose Route Start Last Admin Trade Name Luzma PRN Reason Stop Dose Admin Artificial Tears 1 drop 04/26/23 20:56 Artificial Tears Ophth Soln 15 Ml Bottle EACH EYE DAILY PRN Dry Eyes Collagenase 1 applic 04/27/23 09:00 04/28/23 11:20 Collagenase Oint 30 Gm Tube TOPICAL Not Given QAM KANG Enoxaparin Sodium 40 mg 04/27/23 09:00 04/27/23 08:00 Enoxaparin 40 Mg/0.4 Ml Syringe SUB-Q 40 mg DAILY KANG Administration Hydralazine HCl 10 mg 04/27/23 14:45 Hydralazine Hcl 20 Mg/Ml Vial IV PUSH Q8H PRN Blood Pressure - High Azithromycin 500 mg in 250 mls @ 250 mls/hr 04/26/23 15:00 04/27/23 15:38 Zithromax IVPB Infused Q24H KANG Infusion Ceftriaxone Sodium 1 gm in 50 mls @ 100 mls/hr 04/27/23 14:00 04/27/23 14:27 Rocephin 1 Gm/Ns 50 Ml IVPB Infused Q24H KANG Infusion Levetiracetam 500 mg in 100 mls @ 400 mls/hr 04/27/23 09:00 04/28/23 09:04 Keppra Iv IVPB 400 mls/hr Q12HR KANG Administration Potassium Chloride 40 meq/ 520 mls @ 130 mls/hr 04/28/23 11:40 04/28/23 11:24 Dextrose/Sodium Chloride IVPB 04/28/23 15:39 150 mls/hr ONCE ONE Administration Levetiracetam 500 mg 04/26/23 21:00 04/26/23 21:29 Levetiracetam 500 Mg Tablet PO Not Given BID KANG Levothyroxine Sodium 75 mcg 04/27/23 06:30 04/27/23 08:42 Levothyroxine Sodium 75 Mcg Tablet PO Not Given DAILY@0630 KANG Levothyroxine Sodium 37.5 mcg 04/27/23 06:30 04/28/23 05:31 Levothyroxine Sodium Inj 100 Mcg/5 Ml Vial IV PUSH 37.5 mcg DAILY@0630
[2023-04-28] MEDS: ENOXAPARIN 40 MG/0.4 ML SYRINGE SUB-Q (17:01)
[2023-04-28] MEDS: levoFLOXacin 750 MG/D5W 150 ML 750 MG/150 ML BAG 100 MG IVPB (17:27)
[2023-04-28] MEDS: VANCOMYCIN 1,000 MG/NS 250 ML 1,000 MG/250 ML BAG 250 MG IVPB (17:30)
[2023-04-28] MEDS: MIRTAZAPINE 7.5 MG TABLET PO (20:39)
[2023-04-28] MEDS: MELATONIN 3 MG TABLET PO (20:40)
--- NOTE | 2023-04-28 20:50 | PC.NURSE ---
Patient's Vancomycin 1000 mg in normal saline 250 mL X 1 dose was given during day shift at 1730 hrs but not documented into the system documentation was entered and timed for the administration by the shiftman nurse.
[2023-04-29 00:04] VITALS: PULSE 97
--- NOTE | 2023-04-29 03:40 | PC.NURSE ---
Patient began sustaining a heart rate in the 20s on telemetry. Walked into room with [facility] for a full vitals set. Patient was unreadable on all vitals. No heartbeat or respirations observed upon assessment. Patient declared at 0240, spouse called at [address] Delgado notified at 0246,the computer mechanic and [facility] notified at 0248. Waiting on family to arrive. No home provided at this time.
[2023-04-29 14:15] LABS: Mycoplasma IgM Antibody Titer 92 U/mL (<770)
[2023-04-29 14:22] LABS: Pneumococcal Antigen Urine Not Detected (Not Detected)
--- NOTE | 2023-04-30 16:46 | PM.DDS ---
Discharge Summary Date and Time Date of : 04/29/23 Time of : 02:35 Provider Pronounced By: Smiley Kaba RN Probable Cause of Probable Cause of : Acute respiratory failure related to aspiration pneumonia Summary Hospital Course: patient is a 67-year-old female who presented to the ER via EMS from [facility] for evaluation of altered mental status. She has a significant past medical history of debilitating multiple sclerosis. She had a decline in her mental status for the past 3 days prior to admission and was noted to be pocketing food and having trouble clearing secretions. Workup in the hospital included a chest x-ray which revealed pneumonia secondary to aspiration. She also had a CT the head without contrast which did not show any intracranial hemorrhage, mass, or acute infarct. Blood in urine cultures were obtained. Blood cultures x2 showing no growth to date, urine culture showed mixed genital tree, no acute urinary tract infection. labs revealed initially a white blood count of 8.8 which continuously epi to 18.0 on 04/28/2023, sodium level is 150, potassium 2.9, chloride 119, BUN 11, creatinine 0.5, Mag 2.1, phos 3.3, calcium 8.4, AST 208, ALT 148, BG 106. Patient was treated with Azithromycin and Rocephin up until 04/28/2023 her white count was noted to be increased to 18.0. I discussed with infectious disease pharmacist a better broad-spectrum antibiotic regimen for her and we switched her to vancomycin and Levaquin at that time. Her MRSA swab was negative. on exam patient open eyes to voice, did not follow commands, laying in bed moaning. Patient did see speech and a bedside swallow was performed which could not rule out silent aspiration. Patient NPO and had GI consulted and following for PEG tube placement however GI was unable to get informed consent from the for procedure and PEG tube was not placed. According to the EMR around 230 in morning 04/29/2023 patient heart rate went down to 20. Patient was a DNR and when nurse came in the room there was no palpable pulse, no heart or lung sounds noted. Time of 0235. She was pronounced by Smiley Kaba RN. Dr. Delgado notified at 02:46. Additional Data Confirmation of as documented by pronouncing clinician: Pupillary Reflex, Palpable Pulses, Response to Stimuli, Heart Tones and Breath Sounds Name of Provider Notified: Dr. Delgado Time Provider Notified: 02:46 Provider Requests Autopsy: No Family Requests Autopsy: No Remote Control Mirror Installer Notified: Yes Date [facility] Notified of : 04/29/23 Time [facility] Notified of : 02:48
[2023-05-01] LABS: Legionella pneumophila Ag Ur Not Detected (Not Detected)
== END 2023-04-29 02:35 | disposition expired | DRG 177 ==
LOC: ANHED 14:03 → ANH2MED 14:35
PROVIDERS: Emergency Medicine; Internal Medicine Critical Care Medicine; Internal Medicine Gastroenterology; Nurse Practitioner Acute Care; Physician Assistant; Admitting Provider Internal Medicine; Emergency Provider Emergency Medicine; PCP Physician Assistant; Visit Provider Internal Medicine
DX: J69.0 Pneumonitis due to inhalation of food and vomit (principal); E43 Unspecified severe protein-calorie malnutrition; J96.00 Acute respiratory failure, unspecified whether with hypoxia or hypercapnia; Z68.1 Body mass index [BMI] 19.9 or less, adult; E86.0 Dehydration; E78.5 Hyperlipidemia, unspecified; E03.9 Hypothyroidism, unspecified; G35 Multiple sclerosis; I10 Essential (primary) hypertension; L89.159 Pressure ulcer of sacral region, unspecified stage; L89.629 Pressure ulcer of left heel, unspecified stage; L89.619 Pressure ulcer of right heel, unspecified stage; R41.82 Altered mental status, unspecified; Z20.822 Contact with and (suspected) exposure to COVID-19; Z88.0 Allergy status to penicillin; Z90.710 Acquired absence of both cervix and uterus; Z66 Do not resuscitate
CPT/HCPCS: 36415; 70450; 71045; 80048; 80053; 81001; 83735; 84100; 84439; 84443; 84480; 85025; 85027; 85610; 85730; 86738; 87040; 87081; 87086; 87088; 87147; 87181; 87186; 87449; 87636; 87899; 92610; 93005; 96361; 96365; 96366; 96372; 99285; A9270; G0378; J0456; J0696; J1650; J1953; J1956; J3370; J3480; J7120; J7121